=== PATIENT | female | born 1965 | race Caucasian/White ===

== ENCOUNTER 2016-11-29 07:54 | Day surgery (SDC) | payer BC ==
[~2016-11-29] VITALS: Ht 157.5 cm; Wt 56.7 kg
[~2016-11-29 07:54] MED LIST: BP MED; FLEXERIL5 M1 PO; LIPITOR10 MG PO; LISINOPRIL10 MG PO; METFORMIN500 M1 PO; NAPROSYN500 MG OR; NAPROXEN EC500 MG PO; NO MEDS; SOLU-MEDROL125 MG PO
[2016-11-29] MEDS ORDERED: LISINOPRIL10 MG PO (08:38)
[2016-11-29 11:05] VITALS: BP 121/73
== END 2016-11-29 11:17 | disposition home or self-care (01) | DRG 392 ==
LOC: ENDO 07:54 → ORM 18:30 → ENDO 19:30 → ORM 19:30
PROVIDERS: ATTEND Internal Medicine Gastroenterology
PROC: 0DBL8ZX Excision of Transverse Colon, Via Natural or Artificial Opening Endoscopic, Diagnostic (ICD-10-PCS; principal; 2016-11-29)
PROC: 0DBP8ZX Excision of Rectum, Via Natural or Artificial Opening Endoscopic, Diagnostic (ICD-10-PCS; 2016-11-29)
PROC: 0DBN8ZX Excision of Sigmoid Colon, Via Natural or Artificial Opening Endoscopic, Diagnostic (ICD-10-PCS; 2016-11-29)
DX: K59.00 Constipation, unspecified (principal); I10 Essential (primary) hypertension; K62.5 Hemorrhage of anus and rectum; R10.32 Left lower quadrant pain; R10.31 Right lower quadrant pain; K64.4 Residual hemorrhoidal skin tags; K57.30 Diverticulosis of large intestine without perforation or abscess without bleeding; K64.8 Other hemorrhoids; D12.3 Benign neoplasm of transverse colon; D12.5 Benign neoplasm of sigmoid colon; K62.1 Rectal polyp; E11.9 Type 2 diabetes mellitus without complications; E78.00 Pure hypercholesterolemia, unspecified; K21.9 Gastro-esophageal reflux disease without esophagitis; Z80.0 Family history of malignant neoplasm of digestive organs; Z86.010 Personal history of colon polyps